=== PATIENT | male | born 1980 | race Caucasian/White ===

== ENCOUNTER 2019-04-10 10:39 | Emergency (ER) | payer SELFPAY ==
[~2019-04-10] VITALS: Ht 195.6 cm; Wt 140.0 kg
[~2019-04-10 10:39] MED LIST: CEPHALEXIN500 MG OR; NO HOME MEDS
[2019-04-10 11:48] VITALS: BP 134/81
== END 2019-04-10 11:48 | disposition home or self-care (01) | DRG 605 ==
LOC: ED 10:39
DX: S90.111A Contusion of right great toe without damage to nail, initial encounter (principal); F17.210 Nicotine dependence, cigarettes, uncomplicated; W22.8XXA Striking against or struck by other objects, initial encounter; Y92.828 Other wilderness area as the place of occurrence of the external cause

== ENCOUNTER 2019-08-11 | Emergency (ER) | payer MEDICAID ==
[2019-08-11] MEDS ORDERED: GENTAK0.32 OS (12:46)
== END 2019-08-11 13:01 | disposition home or self-care (01) | DRG 115 ==
PROC: 08C9XZZ Extirpation of Matter from Left Cornea, External Approach (ICD-10-PCS; principal; 2019-08-11)
DX: T15.02XA Foreign body in cornea, left eye, initial encounter (principal); F17.210 Nicotine dependence, cigarettes, uncomplicated; X58.XXXA Exposure to other specified factors, initial encounter; Y93.89 Activity, other specified; Y92.009 Unspecified place in unspecified non-institutional (private) residence as the place of occurrence of the external cause

== ENCOUNTER 2023-09-01 11:33 | Emergency (ER) | payer SELFPAY ==
[~2023-09-01] VITALS: Ht 195.6 cm; Wt 137.0 kg
[~2023-09-01 11:33] MED LIST changes: +GENTAK0.32 OS
[2023-09-01 11:43] VITALS: BP 143/88
[2023-09-01 12:00] VITALS: BP 126/81
[2023-09-01 12:30] VITALS: BP 116/80
[2023-09-01] MEDS ORDERED: LIDOcaine HCl 1% (Local Anesth.) 20 ML VIAL STI STA (12:37)
[2023-09-01] MEDS ORDERED: NEOMYCIN-BACITRACIN-POLYMYXIN 0.5 GM/PAK PAK TOP ONE (12:40)
[2023-09-01] MEDS ORDERED: SODIUM CHLORIDE 500 ML BTL IR ONE (12:40)
[2023-09-01] MEDS ORDERED: Diph, Acellular Pertussis, Tet 0.5 ML/VIAL (Tdap) SDV IM ONE (12:40)
[2023-09-01] MEDS ORDERED: POVIDONE IODINE 0.5 OZ/BTL TOP ONE (12:40)
[2023-09-01] MEDS ORDERED: KEFLEX500 MG PO (12:59)
[2023-09-01 13:03] VITALS: BP 116/80
== END 2023-09-01 13:21 | disposition home or self-care (01) | DRG 605 ==
LOC: ED 11:33
PROC: 0HQFXZZ Repair Right Hand Skin, External Approach (ICD-10-PCS; principal; 2023-09-01)
DX: S61.411A Laceration without foreign body of right hand, initial encounter (principal); F17.210 Nicotine dependence, cigarettes, uncomplicated; W26.8XXA Contact with other sharp object(s), not elsewhere classified, initial encounter